=== PATIENT | female | born 1960 | race Caucasian/White ===

== ENCOUNTER → 2016-03-20 | Outpatient (CLI) | payer OTHER ==
--- NOTE | 2016-03-20 15:46 | DX ---
DEXA Bone Mineral Densitometry Clinical Indications: Postmenopausal, family history of osteoporosis, screening for osteoporosis, HR T Comparison: December 10, 2012 (low bone density) Technique: Bone Mineral Densitometry (BMD) by Dual Energy X-Ray Absorptiometry (DEXA) was performed utilizing the [employer] scanner. The lumbar spine was evaluated in the AP projection. The bilat eral hips and forearm were evaluated in the AP projection. Vertebral fracture assessment was also pe rformed. AP Lumbar Spine: The L1, L2, L3 and L4 vertebral bodies were evaluated. BMD: 1.085 gm/cm2 T-score: -0.9 SD Z-score: - 0.1 SD No significant change AP Left Hip: Neck BMD: 0.895 gm/cm2 T-score: -1.0 SD Z-score: 0 SD No significant change in total BMD AP Right Hip: Neck BMD: 0.872 gm/cm2 T-score: -1.2 SD Z-score: 0.2 SD No significant change in total BMD AP Left Forearm, 02/18: BMD: 0.762 gm/cm2 T-score: -1.3 SD Z-score: -0.7 SD Significantly decreased by 7.6% Vertebral Fracture Assessment: No significant fracture deformity. No prevertebral aortic calcificati on, significant marginal bone spurring, facet arthrosis, or intrinsic vertebral body sclerosis that would effect the accuracy of the lumbar spine BMD measurement. Conclusion: Considering the lowest measured site, the patient remains with low bone density. Since t he greatest loss has been in the forearm, it would be worthwhile to exclude hyperparathyroidism or an underlying cause for left arm disuse The ten year FRAX risk for any major osteoporotic fracture , which excludes the risk for a wrist frac ture, is 12.7% and for a hip fracture is 0.4%. Any bone loss in this patient is probably related to aging or estrogen deficiency. To prevent osteoporosis and to promote the patient's bone density, the following recommendations shou ld be considered: 1. Pursue a regular regimen of weightbearing and muscle strengthening exercises in order to reduce t he risk of falls and fractures (as tolerated by the patient's general medical condition). 2. Ensure that daily dietary calcium uptake is maximized. 3. Consider checking the serum vitamin D level. Ensure that intake of vitamin D is 600 IU per day (fo r all ages through 70) . 4. Consider follow-up DEXA scan in two years to assess the rate of bone loss in this patient.
== END ==
LOC: FIMAGING 14:09
PROVIDERS: ATTEND Family Medicine
DX: Z13.820 Encounter for screening for osteoporosis (principal); Z78.0 Asymptomatic menopausal state; Z82.62 Family history of osteoporosis

== ENCOUNTER → 2017-01-12 | Outpatient (CLI) | payer OTHER | LOC: FIMAGING 08:38 | PROVIDERS: ATTEND Family Medicine | DX: Z12.31 Encounter for screening mammogram for malignant neoplasm of breast (principal) | CPT/HCPCS: G0202 ==

== ENCOUNTER → 2018-01-15 | Outpatient (CLI) | payer OTHER | LOC: FIMAGING 15:13 | PROVIDERS: ATTEND Family Medicine | DX: Z12.31 Encounter for screening mammogram for malignant neoplasm of breast (principal) ==